=== PATIENT | male | born 1975 | race African-American/Black ===

== ENCOUNTER 2019-11-01 11:19 | Observation (INO) ==
[2019-11-01 13:45] LABS: INR 1.1; PT Patient Result 11.5 SECS (9.8-11.9)
[2019-11-01 13:50] LABS: Basophils % 0.1 % (0.0-0.8); Eosinophils # 0.1 10*3/uL (0.0-0.87); Hematocrit 46.5 VOL% (42.0-52.0); Immature Granulocytes % 0.1 %; Immature Granulocytes Absolute 0.01 #; Lymphocytes # 2.5 10*3/uL (1.4-4.0); Lymphocytes % 35.9 % (21.2-54.2); Mean Corpuscular HGB Conc 32.3 GM/DL (32-36); Mean Platelet Volume 9.7 FL (9.6-12.0); Neutrophils % 52.9 % (38.7-73.9); Platelet Count 339 T/CUMM (130-400); Red Blood Count 5.47 MC/CUMM (3.8-5.5); Red Cell Distribution Width 13.2 % (9.3-17.3)
[2019-11-01 14:08] LABS: Albumin 3.9 G/DL (3.4-5.0); Bilirubin,Total 0.5 MG/DL (0.2-1.0); Calcium 9.4 MG/DL (8.5-10.1); Osmolality,Calculated 272.7 MOS/KG (273-304); Total Protein 7.6 G/DL (6.4-8.3)
[2019-11-01] MEDS ORDERED: CALCIUM CARBONATE CHEW 500 MG TABLET PO PRN (14:38)
[2019-11-01] MEDS ORDERED: GLUCAGON 1 MG VIAL IM PRN (14:38)
[2019-11-01] MEDS ORDERED: LABETALOL 20 MG/4 ML SYRINGE IV PRN (14:38)
[2019-11-01] MEDS ORDERED: MORPHINE 4 MG/1 ML VIAL IV PRN (14:38)
[2019-11-01] MEDS ORDERED: DEXTROSE 50% 25 GM/50 ML VIAL IV PRN (14:38)
[2019-11-01] MEDS ORDERED: ACETAMINOPHEN 325 MG TABLET PO PRN (14:38)
[2019-11-01] MEDS ORDERED: ONDANSETRON 4 MG/2 ML VIAL IV PRN (14:38)
[2019-11-01] MEDS ORDERED: DOCUSATE SODIUM 100 MG CAPSULE PO PRN (14:38)
[2019-11-01] MEDS ORDERED: ZALEPLON 5 MG CAPSULE PO PRN (14:38)
[2019-11-01] MEDS: SODIUM CHLORIDE 0.9% 1,000 ML IV SCH (17:34)
[2019-11-01] MEDS: NICOTINE 21 MG/24 HR PATCH TRANSDERM SCH (21:36)
[2019-11-01] MEDS: POTASSIUM CHLORIDE RIDER 10 MEQ in PREMIX 1 EACH IV PRN ×2 (21:37→23:40)
[2019-11-01] MEDS: ATORVASTATIN 40 MG TABLET PO SCH (21:37)
[2019-11-01] MEDS: PROPRANOLOL 10 MG TABLET PO SCH (21:37)
[2019-11-02] MEDS: SODIUM CHLORIDE 0.9% 1,000 ML IV SCH ×2 (00:43→09:24)
[2019-11-02] MEDS: POTASSIUM CHLORIDE RIDER 10 MEQ in PREMIX 1 EACH IV PRN ×2 (01:13→03:36)
[2019-11-02 05:48] LABS: Basophils % 0.1 % (0.0-0.8); Eosinophils # 0.2 10*3/uL (0.0-0.87); Eosinophils % 2.6 % (0.00-10.9); Hematocrit 42.8 VOL% (42.0-52.0); Hemoglobin 13.7 GM/DL (14.0-18.0); Immature Granulocytes % 0.2 %; Immature Granulocytes Absolute 0.02 #; Lymphocytes % 36.6 % (21.2-54.2); Mean Corpuscular Volume 84.4 FL (87-102); Mean Platelet Volume 9.9 FL (9.6-12.0); Monocytes % 8.3 % (1.7-12.7); Neutrophils % 52.2 % (38.7-73.9); Platelet Count 307 T/CUMM (130-400); Red Blood Count 5.07 MC/CUMM (3.8-5.5); Red Cell Distribution Width 13.3 % (9.3-17.3); White Blood Count 8.1 T/CUMM (4-12)
[2019-11-02 06:11] LABS: Alanine Aminotransferase 26 U/L (16-61); Albumin 3.1 G/DL (3.4-5.0); Alkaline Phosphatase 85 U/L (45-117); Aspartate Amino Transferase 22 U/L (0-37); Bilirubin,Total < 0.39 MG/DL (0.2-1.0); Blood Urea Nitrogen 11 MG/DL (7-18); Calcium 8.1 MG/DL (8.5-10.1); Estimated Glom Filtration Rate 140 ML/MIN; Glucose 140 MG/DL (74-106); HDL Cholesterol 32 MG/DL (40-60); Osmolality,Calculated 279.4 MOS/KG (273-304); Risk Ratio 5.31; Thyroid Stimulating Hormone 0.706 uIU/ml (0.358-3.74); Total Protein 6.5 G/DL (6.4-8.3); Triglycerides 171 MG/DL (2-150); VLDL CHOLESTEROL 34.2 MG/DL
[2019-11-02 06:26] LABS: Barbiturates Screen,Urine Negative (Negative); Benzodiazepines Screen,Urine Negative (Negative); Cannabinoid Screen,Urine Positive (Negative); Opiate Screen,Urine Negative (Negative); Phencyclidine Screen,Urine Negative (Negative)
[2019-11-02] MEDS: NICOTINE 21 MG/24 HR PATCH TRANSDERM SCH (08:35)
[2019-11-02] MEDS: PROPRANOLOL 10 MG TABLET PO SCH ×2 (08:35→21:58)
[2019-11-02] MEDS: amLODIPine 10 MG TABLET PO SCH (08:35)
[2019-11-02] MEDS: PANTOPRAZOLE 40 MG TABLET PO SCH (08:35)
[2019-11-02] MEDS: ASPIRIN EC 81 MG TABLET PO SCH (08:35)
[2019-11-02] MEDS ORDERED: CLOPIDOGREL 75 MG TABLET PO SCH (09:00)
[2019-11-02] MEDS ORDERED: POTASSIUM CHLORIDE 20 MEQ TABLET PO ONE (09:11)
[2019-11-02] MEDS: POTASSIUM CHLORIDE 20 MEQ TABLET PO PRN ×4 (09:24→15:32)
[2019-11-02] MEDS ORDERED: lisinopriL 20 MG TABLET PO SCH (15:40)
[2019-11-02] MEDS ORDERED: lisinopriL 20 MG TABLET PO ONE (17:03)
[2019-11-02] MEDS ORDERED: hydrALAZINE 20 MG/1 ML VIAL IM PRN (18:33)
[2019-11-02] MEDS ORDERED: hydrALAZINE 20 MG/1 ML VIAL IV PRN (19:00)
[2019-11-02] MEDS: ATORVASTATIN 40 MG TABLET PO SCH (21:51)
[2019-11-03 06:19] LABS: Basophils % 0.1 % (0.0-0.8); Eosinophils # 0.2 10*3/uL (0.0-0.87); Eosinophils % 2.2 % (0.00-10.9); Hematocrit 45.1 VOL% (42.0-52.0); Hemoglobin 14.5 GM/DL (14.0-18.0); Immature Granulocytes % 0.3 %; Immature Granulocytes Absolute 0.02 #; Lymphocytes # 2.8 10*3/uL (1.4-4.0); Lymphocytes % 37.1 % (21.2-54.2); Mean Corpuscular HGB Conc 32.2 GM/DL (32-36); Mean Corpuscular Volume 84.3 FL (87-102); Mean Platelet Volume 9.9 FL (9.6-12.0); Monocytes % 8.2 % (1.7-12.7); Neutrophils % 52.1 % (38.7-73.9); Platelet Count 333 T/CUMM (130-400); Red Blood Count 5.35 MC/CUMM (3.8-5.5); Red Cell Distribution Width 13.2 % (9.3-17.3); White Blood Count 7.7 T/CUMM (4-12)
[2019-11-03 07:03] LABS: Albumin 3.4 G/DL (3.4-5.0); Bilirubin,Total 0.6 MG/DL (0.2-1.0); Calcium 8.6 MG/DL (8.5-10.1); Osmolality,Calculated 275.5 MOS/KG (273-304)
[2019-11-03] MEDS: ASPIRIN EC 81 MG TABLET PO SCH (09:42)
[2019-11-03] MEDS: PROPRANOLOL 10 MG TABLET PO SCH ×2 (09:42→21:25)
[2019-11-03] MEDS: amLODIPine 10 MG TABLET PO SCH (09:43)
[2019-11-03] MEDS: NICOTINE 21 MG/24 HR PATCH TRANSDERM SCH (09:43)
[2019-11-03] MEDS: PANTOPRAZOLE 40 MG TABLET PO SCH (09:44)
[2019-11-03] MEDS: lisinopriL 20 MG TABLET PO SCH (09:44)
[2019-11-03] MEDS: ATORVASTATIN 40 MG TABLET PO SCH (21:24)
[2019-11-04 06:00] LABS: Basophils % 0.1 % (0.0-0.8); Eosinophils # 0.1 10*3/uL (0.0-0.87); Eosinophils % 1.8 % (0.00-10.9); Hematocrit 43.3 VOL% (42.0-52.0); Hemoglobin 14.2 GM/DL (14.0-18.0); Immature Granulocytes % 0.1 %; Immature Granulocytes Absolute 0.01 #; Lymphocytes # 3.2 10*3/uL (1.4-4.0); Mean Corpuscular HGB Conc 32.8 GM/DL (32-36); Mean Corpuscular Volume 83.8 FL (87-102); Mean Platelet Volume 9.7 FL (9.6-12.0); Monocytes % 6.9 % (1.7-12.7); Neutrophils % 51.1 % (38.7-73.9); Platelet Count 319 T/CUMM (130-400); Red Blood Count 5.17 MC/CUMM (3.8-5.5); Red Cell Distribution Width 13.2 % (9.3-17.3)
[2019-11-04 06:28] LABS: Albumin 3.3 G/DL (3.4-5.0); Bilirubin,Total 1.5 MG/DL (0.2-1.0); Calcium 8.8 MG/DL (8.5-10.1); Osmolality,Calculated 277.5 MOS/KG (273-304); Total Protein 6.9 G/DL (6.4-8.3)
[2019-11-04] MEDS: NICOTINE 21 MG/24 HR PATCH TRANSDERM SCH (09:00)
[2019-11-04] MEDS: lisinopriL 20 MG TABLET PO SCH (09:48)
[2019-11-04] MEDS: amLODIPine 10 MG TABLET PO SCH (09:48)
[2019-11-04] MEDS: ASPIRIN EC 81 MG TABLET PO SCH (09:48)
[2019-11-04] MEDS: PROPRANOLOL 10 MG TABLET PO SCH (09:48)
[2019-11-04] MEDS: PANTOPRAZOLE 40 MG TABLET PO SCH (09:49)
[2019-11-04] MEDS ORDERED: NICOTINE 21 MG/24 HR PATCH TRANSDERM ONE (11:30)
[2019-11-04 11:32] VITALS: BP 127/76
[2019-11-06 13:11] LABS: Cryptococcus Ag Screen (MAYO) Negative (Negative)
== END 2019-11-04 15:05 | disposition home or self-care (01) ==
LOC: N.EDINP 11:19 → N.ED 11:19 → N.EDINP 16:26 → N.3E 16:43
PROVIDERS: ADMIT Internal Medicine; ATTEND Internal Medicine